=== PATIENT | female | born 1985 | race Two or more races ===

== ENCOUNTER 2018-01-07 08:50 | Emergency (ER) | payer BC ==
[2018-01-07 09:01] VITALS: BP 133/76; PULSE 74; TEMP 98.6; BMI 46.0
[2018-01-07] MEDS ORDERED: DIPHTH,PERTUSS(ACELL),TET 0.5 ML DISP.SYRIN IM ONE (09:24)
--- NOTE | 2018-01-07 09:50 | PDOC ---
History of Present Illness - General Chief Complaint: Injury Stated Complaint: LACERATION Time Seen by Provider: 01/07/18 09:02 History Source: Patient Exam Limitations: No Limitations - History of Present Illness Initial Comments: 01/07/18 09:28 Was washing a glass morning, and glass broke causing a laceration to the MCP of right hand fifth digit. Denies foreign body retained, denies inability to move fingers however states fifth pinky feels weird Occurred: reports: just prior to arrival, this morning Severity: reports: mild Method of Injury: Yes: direct blow Associated Symptoms (Fall): denies symptoms Past History - Travel Traveled outside of the country in the last 30 days: No Close contact w/someone who was outside of country & ill: No - Past Medical History Allergies/Adverse Reactions: Allergies Allergy/AdvReac Type Severity Reaction Status Date / Time No Known Allergies Allergy Verified 01/07/18 08:56 Home Medications: Ambulatory Orders NK [No Known Home Medication] 01/07/18 Asthma: Yes (last attack 2012) Cancer: No Cardiac Disorders: No COPD: No Diabetes: No HTN: No Seizures: No Thyroid Disease: No - Immunization History Immunization Up to Date: Yes - Suicide/Smoking/Psychosocial Hx Smoking Status: No Smoking History: Never smoked Have you smoked in the past 12 months: No Number of Cigarettes Smoked Daily: 0 Information on smoking cessation initiated: No Hx Alcohol Use: No Drug/Substance Use Hx: No Substance Use Type: None Hx Substance Use Treatment: No Review of Systems - Review of Systems Able to Perform ROS?: Yes Is the patient limited Kinyarwanda proficient: Yes Constitutional: No: Symptoms Reported HEENTM: No: Symptoms Reported Musculoskeletal: Yes: Symptoms Reported, See HPI Integumentary: Yes: Symptoms Reported, Other (laceration to right hand ) *Physical Exam - Vital Signs Last Vital Signs Temp Pulse Resp BP Pulse Ox 98.6 F 74 16 133/76 99 01/07/18 08:56 01/07/18 08:56 01/07/18 08:56 01/07/18 08:56 01/07/18 08:56 - Physical Exam General Appearance: Yes: Nourished, Appropriately Dressed, Apparent Distress, Mild Distress HEENT: positive: KIERSTEN, Normal ENT Inspection, TMs Normal, Pharynx Normal Musculoskeletal: positive: Normal Inspection Extremity: positive: Normal Capillary Refill, Normal Range of Motion (with some dimnished sensation to distal finger. ). negative: Normal Inspection Integumentary: positive: Normal Color, Warm, Other (2cm curved laceration to lateral plamar 5th MCP/. FROM to finger against resistance , ) Neurologic: positive: departmental secretary II-XII NML intact, Fully Oriented, Alert, Normal Mood/ Affect, Normal Response, Motor Strength 5/5 Procedures - Laceration/Wound Repair Right Lateral Hand Wound Length: to 2.5 cm Wound Explored: clean Wound's Depth, Shape: superficial, flap Irrigated w/ Saline: Yes Betadine Prep: Yes Anesthesia: 1% Lidocaine Wound Debrided: minimal Wound Repaired With: Sutures Suture Size/Type: 5:0 Number of Sutures: 7 Layer Closure: No Progress Note - Progress Note Progress Note: Hand laceration repaired tetanus/diphtheria/pertussis booster updated today *DC/Admit/Observation/Transfer Diagnosis at time of Disposition: Laceration of hand Qualifiers: Encounter type: initial encounter Foreign body presence: without foreign body Laterality: right Qualified Code(s): S61.411A - Laceration without foreign body of right hand, initial encounter - Discharge Dispostion Disposition: HOME Condition at time of disposition: Stable Decision to Admit order: No - Referrals Referrals: ON STAFF,NOT [Primary Care Provider] - - Patient Instructions Printed Discharge Instructions: DI for Laceration Repair -- Simple Additional Instructions: Rest, elevate, avoid strenuous activity or heavy lifting until sutures are removed Leave dressing on for the next 24 hours, Then may remove dressing gently and wash area with soap and water. Reapply bacitracin ointment and dressing daily for the next 5 days On day #6 keep the wound protected and cover as needed until sutures are removed allowing wound to start to dry May use Tylenol or Motrin for pain relief Suture removal in : 7-10 Days Your tetanus/diphtheria/pertussis booster was updated today - Post Discharge Activity Forms/Work/School Notes: Back to Work
== END 2018-01-07 09:59 | disposition home or self-care (01) ==
LOC: JERFT 08:50
PROC: 0HQFXZZ Repair Right Hand Skin, External Approach (ICD-10-PCS; principal; 2018-01-07)
PROC: 3E0234Z Introduction of Serum, Toxoid and Vaccine into Muscle, Percutaneous Approach (ICD-10-PCS; 2018-01-07)
DX: S61.216A Laceration without foreign body of right little finger without damage to nail, initial encounter (principal); W25.XXXA Contact with sharp glass, initial encounter; Y93.G1 Activity, food preparation and clean up; Y92.010 Kitchen of single-family (private) house as the place of occurrence of the external cause; Y99.8 Other external cause status
CPT/HCPCS: 90715; 99281-25

== ENCOUNTER 2018-01-18 18:00 | Emergency (ER) | payer BC ==
--- NOTE | 2018-01-18 18:09 | PDOC ---
Rapid Medical Evaluation Chief Complaint: Suture/Staple Removal(Here) Time Seen by Provider: 01/18/18 18:09 Medical Evaluation: Allergies Allergy/AdvReac Type Severity Reaction Status Date / Time No Known Allergies Allergy Verified 01/18/18 18:07 01/18/18 18:09 Pt here for suture removal x 10 days. Denies symptoms. Discharge Disposition - Diagnosis Visit for suture removal - Referrals - Patient Instructions - Post Discharge Activity
[2018-01-18 18:10] VITALS: BP 121/82; PULSE 87; TEMP 98.3; BMI 47.2
--- NOTE | 2018-01-18 18:44 | PDOC ---
History of Present Illness - General Chief Complaint: Suture/Staple Removal(Here) Stated Complaint: Suture/Staple Removal(Here) Time Seen by Provider: 01/18/18 18:09 - History of Present Illness Initial Comments: 32-year-old female presents for reevaluation and suture removal of the right hand from sutures that were placed about 10-11 days ago. She's has no adverse reaction since suture placement no symptoms. 01/18/18 18:42 Past History - Past Medical History Allergies/Adverse Reactions: Allergies Allergy/AdvReac Type Severity Reaction Status Date / Time No Known Allergies Allergy Verified 01/18/18 18:07 Home Medications: Ambulatory Orders NK [No Known Home Medication] 01/07/18 Asthma: Yes (last attack 2012) Cancer: No Cardiac Disorders: No COPD: No CHF: No Diabetes: No HTN: No Seizures: No Thyroid Disease: No - Immunization History Immunization Up to Date: Yes - Suicide/Smoking/Psychosocial Hx Smoking Status: No Smoking History: Never smoked Have you smoked in the past 12 months: No Number of Cigarettes Smoked Daily: 0 Information on smoking cessation initiated: No Hx Alcohol Use: No Drug/Substance Use Hx: No Substance Use Type: None Hx Substance Use Treatment: No Review of Systems - Review of Systems All Other Systems: Reviewed and Negative *Physical Exam - Vital Signs Last Vital Signs Temp Pulse Resp BP Pulse Ox 98.3 F 87 18 121/82 100 01/18/18 18:08 01/18/18 18:08 01/18/18 18:08 01/18/18 18:08 01/18/18 18:08 - Physical Exam Comments: Right hand wound Prolene sutures are in place, wound is clean and dry and well- healed normal surrounding skin color and temperature. 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 Steri- Strips were applied. Wound instructions were given. 01/18/18 18:43 *DC/Admit/Observation/Transfer Diagnosis at time of Disposition: Visit for suture removal - Discharge Dispostion Disposition: HOME Condition at time of disposition: Stable Decision to Admit order: No - Referrals Referrals: Ijeoma Lopez [Primary Care Provider] - Dominic Norton MD [Staff Physician] - - Patient Instructions Printed Discharge Instructions: DI for Suture Removal Additional Instructions: Keep the wound clean and dry for the next 48 hours after which he may wash the area with soap and water and leave it opened air. Return to the emergency room should he have any pain and redness swelling or drainage from the area. If he needs to you may follow-up with hand surgery for further evaluation and treatment options. - Post Discharge Activity
== END 2018-01-18 18:45 | disposition home or self-care (01) ==
LOC: JERFT 18:00
DX: Z48.817 Encounter for surgical aftercare following surgery on the skin and subcutaneous tissue (principal); Z48.02 Encounter for removal of sutures
CPT/HCPCS: 99281-25